=== PATIENT | male | born 1980 | race Caucasian/White ===

== ENCOUNTER 2018-08-18 00:37 | Emergency (ER) | payer BC ==
[2018-08-18] MEDS ORDERED: Albuterol/Ipratropium 3.0-0.5 MG/3 ML Neb Soln NEB ONE (00:41)
--- NOTE | 2018-08-18 01:19 | EDM.PDOC ---
ED HPI GENERAL MEDICAL PROBLEM - General Chief Complaint: Respiratory Problem Stated Complaint: PERSISTENT COUGH Time Seen by Provider: 08/18/18 01:18 Source of Information: Reports: Patient - History of Present Illness INITIAL COMMENTS - FREE TEXT/NARRATIVE: HISTORY AND PHYSICAL: History of present illness: [Patient presents with persistent cough over the last 4 days no current smoking history although he did have significant smoking history from teens up until last year, now he prefers to chew [place]. 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 Past medical history: As per history of present illness and as reviewed below otherwise noncontributory. Surgical history: As per history of present illness and as reviewed below otherwise noncontributory. Social history: No reported history of drug or alcohol abuse. Family history: As per history of present illness and as reviewed below otherwise noncontributory. Physical exam: HEENT: Atraumatic, normocephalic, pupils reactive, negative for conjunctival pallor or scleral icterus, mucous membranes moist, throat clear, neck supple, nontender, trachea midline. Lungs: Clear to auscultation, breath sounds equal bilaterally, chest nontender. Heart: S1S2, regular, negative for clicks, rubs, or JVD. Abdomen: Soft, nondistended, nontender. Negative for masses or hepatosplenomegaly. Negative for costovertebral tenderness. Pelvis: Stable nontender. Genitourinary: Deferred. Rectal: Deferred. Extremities: Atraumatic, negative for cords or calf pain. Neurovascular unremarkable. Neuro: Awake, alert, oriented. Cranial nerves II through XII unremarkable. Cerebellum unremarkable. Motor and sensory unremarkable throughout. Exam nonfocal. Diagnostics: [CBC CMP UA BN peptide BN peptide machine is down and will be several hours although this will not pack changer at this point] Therapeutics: [DuoNeb Solu-Medrol 125 mg IV Vasotec 1.25 mg IV] Azithromycin 500 mg by mouth now Z-Mik 500 mg #6 Prednisone 20 mg #5 Lasix 20 mg by mouth #5 HFA All up with primary care for recheck of blood pressure reassess edema Impression: [ bronchitis shortness of breath on arrival 1+ edema Hypertensive urgency Definitive disposition and diagnosis as appropriate pending reevaluation and review of above. - Related Data Allergies Allergy/AdvReac Type Severity Reaction Status Date / Time No Known Allergies Allergy Verified 08/18/18 01:01 Home Meds: Home Meds . [No Known Home Meds] 08/18/18 [History] Past Medical History - Past Health History Medical/Surgical History: Denies Medical/Surgical History Endocrine/Metabolic History: Reports: Obesity/BMI 30+ - Past Surgical History Musculoskeletal Surgical History: Reports: Other (See Below) Other Musculoskeletal Surgeries/Procedures:: MCL;foot sx Social & Family History - Tobacco Use Smoking Status *Q: Never Smoker - Recreational Drug Use Recreational Drug Use: No ED ROS GENERAL - Review of Systems Review Of Systems: See Below ED EXAM, GENERAL - Physical Exam Exam: See Below Course - Vital Signs Last Recorded V/S: Last Vital Signs Temp 97.9 F 08/18/18 00:55 Pulse 84 08/18/18 02:03 Resp 18 08/18/18 00:55 BP 174/77 H 08/18/18 02:03 Pulse Ox 96 08/18/18 02:03 - Orders/Labs/Meds Orders: Active Orders 24 hr Category Date Time Status RT Aerosol Therapy [RC] ASDIRECTED Care 08/18/18 00:41 Active B-TYPE NATRIURETIC PEPTIDE,BNP [CHEM] Stat Lab 08/18/18 01:40 Received UA RFX NICHO AND CULT IF INDIC [URIN] Stat Lab 08/18/18 01:35 Ordered Sodium Chloride 0.9% [Normal Saline] 500 ml Med 08/18/18 01:45 Active IV STAT Medication Orders Sodium Chloride (Normal Saline) 500 mls @ 30 mls/hr IV STAT JOSE Last Admin: 08/18/18 01:53 Dose: 30 mls/hr Labs: Laboratory Tests 08/18/18 08/18/18 Range/Units 01:40 01:40 WBC 7.30 (4.0-11.0) K/uL RBC 4.96 (4.50-5.90) M/uL Hgb 15.9 (13.0-17.0) g/dL Hct 45.7 (38.0-50.0) % MCV 92.1 (80.0-98.0) fL MCH 32.1 H (27.0-32.0) pg MCHC 34.8 (31.0-37.0) g/dL RDW Std Deviation 43.1 (28.0-62.0) fl RDW Coeff of [place] 13 (11.0-15.0) % Plt Count 221 (150-400) K/uL MPV 9.80 (7.40-12.00) fL Neut % (Auto) 49.7 (48.0-80.0) % Lymph % (Auto) 36.6 (16.0-40.0) % [place] % (Auto) 6.3 (0.0-15.0) % Eos % (Auto) 7.0 (0.0-7.0) % Baso % (Auto) 0.4 (0.0-1.5) % Neut # (Auto) 3.6 (1.4-5.7) K/uL Lymph # (Auto) 2.7 H (0.6-2.4) K/uL [place] # (Auto) 0.5 (0.0-0.8) K/uL Eos # (Auto) 0.5 (0.0-0.7) K/uL Baso # (Auto) 0.0 (0.0-0.1) K/uL Nucleated RBC % 0.0 /100WBC Nucleated RBCs # 0 K/uL Sodium 136 (136-148) mmol/L Potassium 3.6 (3.5-5.1) mmol/L Chloride 101 (98-107) mmol/L Carbon Dioxide 27.9 (21.0-32.0) mmol/L BUN 14 (7.0-18.0) mg/dL Creatinine 1.1 (0.8-1.3) mg/dL Est Cr Clr Drug Dosing 107.94 mL/min Estimated GFR (MDRD) > 60.0 ml/min Glucose 103 (74-106) mg/dL Calcium 8.9 (8.5-10.1) mg/dL Total Bilirubin 0.7 (0.2-1.0) mg/dL AST 92 H (15-37) IU/L ALT 340 H (14-63) IU/L Alkaline Phosphatase 60 (46-116) U/L Total Protein 8.0 (6.4-8.2) g/dL Albumin 3.8 (3.4-5.0) g/dL Globulin 4.2 H (2.6-4.0) g/dL Albumin/Globulin Ratio 0.9 (0.9-1.6) Meds: Medications Generic Name Dose Route Start Last Admin Trade Name Freq PRN Reason Stop Dose Admin Sodium Chloride 500 mls @ 30 mls/hr 08/18/18 01:45 08/18/18 01:53 Normal Saline IV 30 mls/hr STAT JOSE Administration Discontinued Medications Generic Name Dose Route Start Last Admin Trade Name Freq PRN Reason Stop Dose Admin Albuterol/Ipratropium 3 ml 08/18/18 00:41 08/18/18 01:17 Duoneb 3.0-0.5 Mg/3 Ml NEB 08/18/18 00:42 3 ml ONETIME ONE Administration Azithromycin 500 mg 08/18/18 02:13 Zithromax PO 08/18/18 02:14 NOW STA Enalaprilat 1.25 mg 08/18/18 01:38 08/18/18 01:58 Vasotec Iv IVPUSH 08/18/18 01:39 1.25 mg ONETIME ONE Administration Methylprednisolone Sodium Succinate 125 mg 08/18/18 01:35 08/18/18 01:54 Solu-Medrol IVPUSH 08/18/18 01:36 125 mg ONETIME ONE Administration Departure - Departure Time of Disposition: 02:27 Disposition: Home, Self-Care 01 Condition: Good Clinical Impression: Bronchitis, Edema - Discharge Information Referrals: PCP,None [Primary Care Provider] - Forms: ED Department Discharge Additional Instructions: Medication as prescribed Return if symptoms persist or worsen Follow-up with primary care within 2 weeks [facility] [address] [place] [id number] The following information is given to patients seen in the emergency department who are being discharged to home. This information is to outline your options for follow-up care. We provide all patients seen in our emergency department with a follow-up referral. The need for follow-up, as well as the timing and circumstances, are variable depending upon the specifics of your emergency department visit. If you don't have a primary care physician on staff, we will provide you with a referral. We always advise you to contact your personal physician following an emergency department visit to inform them of the circumstance of the visit and for follow-up with them and/or the need for any referrals to a consulting specialist. The emergency department will also refer you to a specialist when appropriate. This referral assures that you have the opportunity for follow-up care with a specialist. All of these measure are taken in an effort to provide you with optimal care, which includes your follow-up. Under all circumstances we always encourage you to contact your private physician who remains a resource for coordinating your care. When calling for follow-up care, please make the office aware that this follow-up is from your recent emergency room visit. If for any reason you are refused follow-up, please contact the [facility] emergency department at and asked to speak to the emergency department charge nurse. - My Orders Last 24 Hours: My Active Orders 08/18/18 00:41 RT Aerosol Therapy [RC] ASDIRECTED 08/18/18 01:35 UA RFX NICHO AND CULT IF INDIC [URIN] Stat 08/18/18 01:40 B-TYPE NATRIURETIC PEPTIDE,BNP [CHEM] Stat 08/18/18 01:45 Sodium Chloride 0.9% [Normal Saline] 500 ml IV STAT - Assessment/Plan Last 24 Hours: My Active Orders 08/18/18 00:41 RT Aerosol Therapy [RC] ASDIRECTED 08/18/18 01:35 UA RFX NICHO AND CULT IF INDIC [URIN] Stat 08/18/18 01:40 B-TYPE NATRIURETIC PEPTIDE,BNP [CHEM] Stat 08/18/18 01:45 Sodium Chloride 0.9% [Normal Saline] 500 ml IV STAT
[2018-08-18] MEDS ORDERED: methylPREDNISolone Sodium Succinate 125 MG/2 ML SDV IVPUSH ONE (01:35)
[2018-08-18] MEDS ORDERED: Enalaprilat 1.25 MG/ML SDV IVPUSH ONE (01:38)
[2018-08-18] MEDS ORDERED: Sodium Chloride 0.9% 500 ML IV SCH (01:45)
--- NOTE | 2018-08-18 01:55 | CR ---
INDICATION: Shortness of breath TECHNIQUE: Chest one view COMPARISON: None FINDINGS: The heart is normal in size. The pulmonary vasculature is within normal limits. The lungs are clear without focal consolidation, pleural effusion or pneumothorax. The visualized osseous structures are unremarkable. IMPRESSION: No acute process. Dictated by Jenn Spring MD @ 08/18/2018 1:54:36 AM Dictated by: Jenn Spring MD @ 08/18/2018 01:54:46 (Electronically Signed)
[2018-08-18 02:11] LABS: CHLORIDE,CL 101 mmol/L (98-107); SODIUM,NA 136 mmol/L (136-148)
[2018-08-18] MEDS ORDERED: Azithromycin 250 MG Tab PO STA (02:13)
== END 2018-08-18 02:31 | disposition home or self-care (01) ==
LOC: EDBD 00:37 → MW.ED 00:37
DX: I16.0 Hypertensive urgency (principal); J40 Bronchitis, not specified as acute or chronic; R60.9 Edema, unspecified; E66.9 Obesity, unspecified
CPT/HCPCS: 71045; 80053; 83880; 85025; 96361; 96374; 96375; 99284; A9270; J2930; J7040; J7620-GY